=== PATIENT | female | born 1990 | race Caucasian/White ===

== ENCOUNTER 2017-02-08 16:40 | Emergency (ER) | payer OTHER ==
--- NOTE | 2017-02-08 18:32 | ED ORDER SUMMARY ---
..... Patient: YELENA GASTON OrderSheet [facility] VisitID: [id number] [address] [place] [address] 26y, F Registration Date/Time: 02/08/2017 ORDER SHEET Weight: 61.2 kg (stated) Allergies: Latex GENERAL ORDERS: CBC w Diff Urgent (17:02/08/2017 HBivens A.R.N.P.) (17:44 JSimbeck R.N.) (Ack 17:45 LNations ER Tech1) CMP Urgent (17:02/08/2017 HBivens A.R.N.P.) (17:44 JSimbeck R.N.) (Ack 17:45 LNations ER Tech1) UA-Culture if indicated Urgent (17:02/08/2017 HBivens A.R.N.P.) (17:44 JSimbeck R.N.) (Ack 17:45 LNations ER Tech1) Amylase Urgent (17:02/08/2017 HBivens A.R.N.P.) (17:44 JSimbeck R.N.) (Ack 17:45 LNations ER Tech1) Lipase Urgent (17:02/08/2017 HBivens A.R.N.P.) (17:45 JSimbeck R.N.) (Ack 17:45 LNations ER Tech1) Urine Urgent (17:02/08/2017 HBivens A.R.N.P.) (17:45 JSimbeck R.N.) (Ack 17:45 LNations ER Tech1) MEDICATION ORDERS: IV FLUIDS: IV NS : initial bolus 1000 mL (1000 mL/hr), then none - (NOW) (17:02/08/2017 HBivens A.R.N.P.) (17:46 JSimbeck R.N.) Toradol IV 30 mg (NOW) (17:02/08/2017 HBivens A.R.N.P.) (17:46 JSimbeck R.N.) Zofran IV 4 mg (NOW) (17:02/08/2017 HBivens A.R.N.P.) (17:47 JSimbeck R.N.) IV Saline Lock (17:22 02/08/2017 Vinod TerryR.N.PNicki) (17:45 Melanie Kramer) ORDER SHEET NOTES: [Electronically signed by Naya WashburnNNickiPNicki (21:41 02/08/2017)] [Electronically signed by Christian Patel R.N. (07:03 02/09/2017)] [Electronically locked/signed by Christian Patel R.N. (07:03 02/09/2017)]
--- NOTE | 2017-02-08 18:32 | ED NURSING NOTES ---
Clinical Report - Nurses [facility] [address] [place] [place] [address] 02/08/2017 16:43 Patient: YELENA GASTON TRIAGE Triage time 16:57. Acuity: LEVEL 3. Chief Complaint: ABDOMINAL PAIN and NAUSEA and PAINFUL URINATION (Onset this am - generalized abd pain that wraps around to the back. Frequent urges to have a BM, but nothing produced. Last normal BM was yesterday. 2 days ago she had similar but lesser sx that were mostly resolved until today.). SEPSIS SCREEN: Sepsis Screen. Negative (no infection suspected/documented). KING COMA SCORE: King Coma Scale: 15- eyes open spontaneously (4); best verbal response- oriented x 4 (5); best motor response- obeys commands (6). --17:06 Christian Patel R.N. 16:57 02/08/17. BP: 122/72 (regular adult cuff) taken on the left arm, while lying. HR: 98. RR: 20. O2 saturation: 99% on room air. Temp: 98.8 F (oral). Pain level now: 04/03. --17:06 Christian Patel R.N. Weight: 61.2 kg stated. Height/Length: 60 inches Per Patient. BMI: 26.4. --17:01 Christian Patel R.N. Medications None. --16:59 Christian Patel R.N. Allergies Latex. --17:00 Christian Patel R.N. History Arrived by private vehicle. Historian: patient. Accompanied by family. PAST MEDICAL HX: Last normal menstrual period was 3 weeks ago. SOCIAL HX: Former smoker, end date 05/2016 (cigarette). Occasional alcohol use. History of occasional drug use: marijuana. No recent travel. No known contact with a sick individual. ABUSE ASSESSMENT: No report of abuse. --17:06 Christian Patel R.N. PROBLEMS: Ovarian Cyst. --17:00 Christian Patel R.N. PTSD. --17:01 Christian Patel R.N. ADDITIONAL SURGERIES: no known surgeries. Assessment GENERAL / NEURO / PSYCH: Alert. Oriented X 4. Appears in pain. Patient appears calm and cooperative. RESPIRATORY: Respirations not labored. Chest nontender. Breath sounds within normal limits. CVS: Capillary refill less than 2 seconds. GI / : Abdomen soft. Abdominal tenderness diffusely. SKIN: Mucous membranes are pink. Skin is warm and dry. --17:06 Christian Patel R.N. Interventions ID band on patient. To treatment room. --17:06 Christian Patel R.N. PHYSICAL ASSESSMENT Ambulatory to room. GENERAL / NEURO / PSYCH: Alert. Oriented X 4. Appears in pain. HEENT: Mucous membranes are pink. RESPIRATORY: Respirations not labored. Breath sounds within normal limits. CVS: Capillary refill less than 2 seconds. GI / : The patient has had nausea. Abdomen soft. Abdominal tenderness diffusely. Bowel sounds within normal limits. SKIN: Skin is warm and dry. --17:08 Christian Patel R.N. NURSING PROGRESS NOTES Patient gowned. Head of bed elevated. Reassurance given. Two patient identifiers checked. Call light placed in reach. Bed placed in lowest position. Brakes of bed on. Patient ready for evaluation- chart flagged. --17:08 Christian Patel R.N. 17:38 02/08/2017 Site #1 started via IV in the right antecubital space with an 18g angiocath, with aseptic technique and good blood return; one attempt. Blood drawn: rainbow set. Labeled in the presence of the patient and sent to the lab. Saline lock flushed with 10 mL saline. --17:45 Christian Patel R.N. 17:38 02/08/2017 Started bag #1 1000 mL IV Fluids IV NS (Saline); bolus of 1000 mL over 1 hour(s) via site #1 via IV pump. Allergies verified and confirmed 5 rights. IV patency established. IV site checked: no pain, redness, or swelling. IV flushed thoroughly pre- and post-medication administration. --17:46 Christian Patel R.N. 17:39 02/08/2017 Toradol IVP 30 mg given over 1 minute(s) via site #1. Allergies verified and confirmed 5 rights. IV patency established. IV site checked: no pain, redness, or swelling. IV flushed thoroughly pre- and post-medication administration. IVP given by RN. --17:46 Christian Patel R.N. 17:40 02/08/2017 Zofran (Ondansetron HCl) IVP 4 mg given over 1 minute(s) via site #1. Allergies verified and confirmed 5 rights. IV patency established. IV site checked: no pain, redness, or swelling. IV flushed thoroughly pre- and post-medication administration. IVP given by RN. --17:47 Christian Patel R.N. 17:58 02/08/2017 Toradol IVP Response: no adverse reaction pain is improving. Symptoms have improved. --17:58 Christian Patel R.N. 17:58 02/08/2017 Zofran IVP Response: no adverse reaction pain is improving. Symptoms have improved. --17:58 Christian Patel R.N. 18:00 02/08/17. BP: 96/58. HR: 98. RR: 16. O2 saturation: 97% on room air. Pain level now: 02/01. --18:16 Christian Patel R.N. DISPOSITION / DISCHARGE 18:49 02/08/2017 Site #1 removed upon discharge. Bandage applied. --18:52 Christian Patel R.N. Departure time: 1850. Condition at departure: improved and stable. No learning barriers present. Discharge instructions provided and reviewed with the patient. Reviewed medication(s). Patient and spouse verbalized understanding. Written instructions provided in Libyan. The patient was discharged by the nurse practitioner. She was discharged home and accompanied by spouse. She left the Emergency Department ambulatory and via private vehicle. Spouse driving. --18:53 Christian Patel R.N. 18:35 02/08/17. BP: 109/53. HR: 98. RR: 16. O2 saturation: 98%. Temp: 98.8 F. Pain level now: 01/02. --18:53 Christian Patel R.N. Locked/Released at 02/09/2017 7:03 by Christian Patel R.N.
--- NOTE | 2017-02-08 18:32 | ED ORDER SUMMARY ---
..... Patient: YELENA GASTON OrderSheet [facility] VisitID: [id number] [address] [place] [address] 26y, F Registration Date/Time: 02/08/2017 ORDER SHEET Weight: 61.2 kg (stated) Allergies: Latex GENERAL ORDERS: CBC w Diff Urgent (17:02/08/2017 HBivens A.R.N.P.) (17:44 JSimbeck R.N.) (Ack 17:45 LNations ER Tech1) CMP Urgent (17:02/08/2017 HBivens A.R.N.P.) (17:44 JSimbeck R.N.) (Ack 17:45 LNations ER Tech1) UA-Culture if indicated Urgent (17:02/08/2017 HBivens A.R.N.P.) (17:44 JSimbeck R.N.) (Ack 17:45 LNations ER Tech1) Amylase Urgent (17:02/08/2017 HBivens A.R.N.P.) (17:44 JSimbeck R.N.) (Ack 17:45 LNations ER Tech1) Lipase Urgent (17:02/08/2017 HBivens A.R.N.P.) (17:45 JSimbeck R.N.) (Ack 17:45 LNations ER Tech1) Urine Urgent (17:02/08/2017 HBivens A.R.N.P.) (17:45 JSimbeck R.N.) (Ack 17:45 LNations ER Tech1) MEDICATION ORDERS: IV FLUIDS: IV NS : initial bolus 1000 mL (1000 mL/hr), then none - (NOW) (17:02/08/2017 HBivens A.R.N.P.) (17:46 JSimbeck R.N.) Toradol IV 30 mg (NOW) (17:02/08/2017 HBivens A.R.N.P.) (17:46 JSimbeck R.N.) Zofran IV 4 mg (NOW) (17:02/08/2017 HBivens A.R.N.P.) (17:47 JSimbeck R.N.) IV Saline Lock (17:22 02/08/2017 Vinod TerryR.N.PNicki) (17:45 Melanie Kramer) ORDER SHEET NOTES: [Electronically signed by Naya WashburnNNickiPNicki (21:41 02/08/2017)] [Electronically signed by Christian Patel R.N. (07:03 02/09/2017)] [Electronically locked/signed by Christian Patel R.N. (07:03 02/09/2017)]
--- NOTE | 2017-02-08 18:32 | ED CLINICAL REPORT ---
Clinical Report - Physicians/Mid Levels [facility] [address] [place] [address] 02/08/2017 16:43 Patient: YELENA GASTON Time Seen: 17:07; initial patient contact, initial documentation, patient care assumed. Arrived- By private vehicle. Historian- patient. HISTORY OF PRESENT ILLNESS Chief Complaint: ABDOMINAL PAIN. At its maximum, severity described as severe. When seen in the E.D., severity described as severe. Modifying factors. Not worsened by anything. Not relieved by anything. It is described as "pain", sharp and stabbing and pressure. It is described as located in the right lower quadrant, right pelvis, left lower quadrant and left pelvis and in the lower abdomen. It is described as located in the pelvic area and in the suprapubic area and radiating to the low back. This started today. The patient has had nausea. No loss of appetite, vomiting or diarrhea. No additional abdominal pain. No recent travel. Similar symptoms previously: None. Recent medical care: Not recently seen/assessed. REVIEW OF SYSTEMS Last normal menstrual period- about 3 weeks ago. No constipation, black stools, hematemesis, difficulty with urination or bloody stools. No fever, chest pain, difficulty breathing or vaginal discharge. The patient has had pain on urination. The patient has had urinary frequency. Denies current . Last bowel movement: yesterday. All systems otherwise negative, except as recorded above. PAST HISTORY See nurses notes. PROBLEMS: Ovarian Cyst. --17:00 Christian Patel R.N. PTSD. --17:01 Christian Patel R.N. ADDITIONAL SURGERIES: no known surgeries. SOCIAL HISTORY Former smoker. Occasional alcohol use. History of occasional drug use: marijuana. No recent travel. Is a local resident. FAMILY HISTORY Negative. ADDITIONAL NOTES The nursing notes have been reviewed with agreement regarding the chief complaint, HPI, ROS, PMH and patient medications and allergies. PHYSICAL EXAM Vital Signs: 02/08/2017 16:57 BP: 122/72. HR: 98. RR: 20. O2 saturation: 99%. Temp: 98.8 F. Pain level now: 04/03. Have been reviewed as normal and appear to be correct. Appearance: Alert. Oriented X3. No acute distress. Anxious. Eyes: Pupils equal, round and reactive to light. Eyes normal inspection. Neck: Normal inspection. Neck supple. CVS: Normal heart rate and rhythm. Heart sounds normal. Pulses normal. Respiratory: No respiratory distress. Breath sounds normal. Chest nontender. Abdomen: Soft and nontender. Bowel sounds normal. No organomegaly. No mass. Back: Normal inspection. Skin: Skin warm and dry. Normal skin color. No rash. Normal skin turgor. Extremities: Extremities exhibit normal ROM. No lower extremity edema. Neuro: Oriented X 3. No motor deficit. No sensory deficit. LABS, X-RAYS, AND EKG Laboratory Tests: UA-Culture if indicated: (RASTA: 02/08/2017 17:30) ( [facility] [place] 02/08/2017 18:23) Final results Test Result Flag Units (Reference) URINE COLOR YELLOW URINE APPEARANCE CLEAR URINE GLUCOSE NEGATIVE (NEGATIVE) URINE BILIRUBIN NEGATIVE (NEGATIVE) URINE KETONE NEGATIVE (NEGATIVE) URINE SPECIFIC GRAVITY <= 1.005 L (1.010-1.030) URINE PH 6.5 (5.0-8.0) URINE PROTEIN NEGATIVE (NEGATIVE) URINE UROBILINOGEN 0.2 EU/dL (0.2-1.0) URINE NITRITE NEGATIVE (NEGATIVE) URINE BLOOD TRACE-INTACT (NEGATIVE) URINE LEUK ESTERASE NEGATIVE (NEGATIVE) URINE RBC 0-1 rbc/hpf (0-1) URINE WBC 0-1 wbc/hpf (0-1) URINE EPITHELIAL CELLS 1-3 EPI/hpf (0-5) URINE BACTERIA FEW (1+) (NONE SEEN) URINE COMMENT CULT NOT INDICATED URINE CULTURES ARE SET-UP BASED ON THE FOLLOWING CRITERIA:POSITIVE NITRITEPOSITIVE LEUKOCYTE ESTERASEGREATER THAN 10 WHITE BLOOD CELLSMODERATE (2+) OR GREATER BACTERIA Urine: (RASTA: 02/08/2017 17:30) ( [facility] [place] 02/08/2017 18:04) Final results Test Result Flag Units (Reference) URINE NEGATIVE CBC w Diff: (RASTA: 02/08/2017 17:30) ( [facility] [place] 02/08/2017 17:55) Final results Test Result Flag Units (Reference) WHITE BLOOD COUNT 10.8 K/uL (4.5-11.5) RED BLOOD COUNT 5.09 M/uL (4.00-5.20) HEMOGLOBIN 14.7 gm/dL (12.0-16.0) HEMATOCRIT 43.0 % (36.0-46.0) MEAN CELL VOLUME 85 fL (80-100) MEAN CORPUSCULAR HGB 29 pg (26-34) MEAN CORPUSCULAR HGB CONC 34 g/dL (31-37) RED CELL DISTRIBUTION WIDTH 13.1 % (11.6-14.8) PLATELET COUNT 243 K/uL (150-400) NEUTROPHIL % 77.9 H % (50-75) LYMPH % 13.5 L % (25-40) MONO % 4.5 % (3-14) EOSINOPHIL % 3.8 % (0-4) BASOPHIL % 0.3 % (0-2) CMP: (RASTA: 02/08/2017 17:30) ( MsgRcvd 02/08/2017 18:25) Final results Test Result Flag Units (Reference) GLUCOSE 93 mg/dL (70-110) BUN 9 mg/dL (7-18) CREATININE 0.7 mg/dL (0.6-1.3) Estimated GFR >60 mL/min Estimated GFR- >60 mL/min Note: Persistent reduction over 3 months in eGFR<60 mL/min/1.73 m2 defines CKD. Patients with eGFR values>=60 mL/min/1.73 m2 may also have CKD if evidence ofpersistent proteinuria. Additional information may be foundat www.kidney.org. SODIUM 141 mmol/L (136-145) POTASSIUM 3.8 mmol/L (3.5-5.1) CHLORIDE 104 mmol/L (98-107) CARBON DIOXIDE 26 mmol/L (21-32) CALCIUM 9.1 mg/dL (8.5-10.1) TOTAL PROTEIN 8.6 H g/dL (6.4-8.2) ALBUMIN 4.1 g/dL (3.3-5.0) BILIRUBIN, TOTAL 0.3 mg/dL (0.0-1.0) ALKALINE PHOSPHATASE 67 U/L (46-116) AST (SGOT) 15 U/L (15-37) ALT (SGPT) 15 U/L (12-78) LIPASE 85 U/L (73-393) AMYLASE 53 U/L (25-115) . PROGRESS AND PROCEDURES Course of Care: 182. pt smiling and telling me she feels great and is ready to go home. Patient counseled in person regarding the patient's stable condition, test results and diagnosis. 18:27. Differential Diagnosis: I considered acute appendicitis, diverticulitis, colon cancer, ulcerative colitis, Crohn's disease, urinary tract infection, ureterolithiasis, ovarian cyst, ovarian torsion, , ectopic and viral syndrome as a possible cause of abdominal pain in this patient. This is a partial list of diagnoses considered. Above considerations are based on history, physical exam, reassessment and laboratory data. Differential diagnosis was discussed with patient. Disposition: Discharged home in good and improved condition (18:32). Condition: good and stable. CLINICAL IMPRESSION Acute generalized abdominal pain of undetermined cause. INSTRUCTIONS Warnings: GENERAL WARNINGS: Return or contact your physician immediately if your condition worsens or changes unexpectedly, if not improving as expected, or if other problems arise. SPECIFICALLY, return if you develop pain in the abdomen or pelvis, fever, the inability to keep fluids down, blood in vomitus, blood in diarrhea, fainting or lightheadedness. Prescription Medications: Zofran 4 mg: Take 1 orally every six hours as needed for nausea/vomiting. Dispense ten (10). No refills. Substitution is permissible. Ultram 50 mg tablets: take 1-2 orally every 6 hours as needed for pain. Dispense twenty (20). No refills. Substitution is permissible. Follow-up: Follow up with your doctor in about two days even if well. Call for an appointment. Summary of care provided to patient. Understanding of the discharge instructions verbalized by patient. (Electronically signed by Naya Washburn A.R.N.P. 02/08/2017 21:41)
--- NOTE | 2017-02-09 07:04 | ED DISCHARGE INSTRUCTIONS ---
Patient: YELENA GASTON General Instructions [facility] VisitID: [id number] [place] [address] 26y, F Registration Date/Time: 02/08/2017 Acute generalized abdominal pain of undetermined cause. INSTRUCTIONS Warnings: GENERAL WARNINGS: Return or contact your physician immediately if your condition worsens or changes unexpectedly, if not improving as expected, or if other problems arise. SPECIFICALLY, return if you develop pain in the abdomen or pelvis, fever, the inability to keep fluids down, blood in vomitus, blood in diarrhea, fainting or lightheadedness. Prescription Medications: Zofran 4 mg: Take 1 orally every six hours as needed for nausea/vomiting. Dispense ten (10). No refills. Substitution is permissible. Ultram 50 mg tablets: take 1-2 orally every 6 hours as needed for pain. Dispense twenty (20). No refills. Substitution is permissible. Follow-up: Follow up with your doctor in about two days even if well. Call for an appointment. Summary of care provided to patient. Understanding of the discharge instructions verbalized by patient. ADDITIONAL INFORMATION Abdominal Pain, Unknown Cause (Female) The exact cause of your abdominal (stomach) pain is not certain. This does not mean that this is something to worry about, or the right tests were not done. Everyone likes to know the exact cause of the problem, but sometimes with abdominal pain, there is no clear-cut cause, and this could be a good thing. The good news is that your symptoms can be treated, and you will feel better. Your condition does not seem serious now; however, sometimes the signs of a serious problem may take more time to appear. For this reason,it is important for you to watch for any new symptoms, problems,or worsening of your condition. Over the next few days, the abdominal pain may come and go, or be continuous. Other common symptoms can include nausea and vomiting. Sometimes it can be difficult to tell if you feel nauseous, you may just feel bad and not associate that feeling with nausea. Constipation, diarrhea, and a fever may go along with the pain. The pain may continue even if treated correctly over the following days. Depending on how things go, sometimes the cause can become clear and may require further or different treatment. Additional evaluations, medications, or tests may be needed. Home care Your health care provider may prescribe medications for pain, symptoms, or an infection. Follow the health care provider's instructions for taking these medications. General care Rest until your next exam. No strenuous activities. Try to find positions that ease discomfort. A small pillow placed on the abdomen may help relieve pain. Something warm on your abdomen (such as a heating pad) may help, but be careful not to burn yourself. Diet Do not force yourself to eat, especially if having cramps, vomiting, or diarrhea. Water is important so you do not get dehydrated. Soup may also be good. Sports drinks may also help, especially if they are not too acidic. Make sure you don't drink sugary drinks as this can make things worse. Take liquids in small amounts. Do not guzzle them. Caffeine sometimes makes the pain and cramping worse. Avoid dairy products if you have vomiting or diarrhea. Don't eat large amounts at a time. Wait a few minutes between bites. Eat a diet low in fiber (called a low-residue diet). Foods allowed include refined breads, white rice, fruit and vegetable juices without pulp, tender meats. These foods will pass more easily through the intestine. Avoid whole-grain foods, whole fruits and vegetables, meats, seeds and nuts, fried or fatty foods, dairy, alcohol and spicy foods until your symptoms go away. Follow-up care Follow up with your health care provider as instructed, or if your pain does not begin to improve in the next 24 hours. When to seek medical care Seek prompt medical care if any of the following occur: Pain gets worse or moves to the right lower abdomen New or worsening vomiting or diarrhea Swelling of the abdomen Unable to pass stool for more than three days Fever of 100.4F (38C) or higher, or as directed by your healthcare provider. Blood in vomit or bowel movements (dark red or black color) Jaundice (yellow color of eyes and skin) Weakness, dizziness Chest, arm, back, neck or jaw pain Unexpected vaginal bleeding or missed period Call 911 Call emergency services if any of the following occur: Trouble breathing Confusion Fainting or loss of consciousness Rapid heart rate Seizure Abdominal Pain,Possible Appendicitis [Repeat Exam, Female] Based on your visit today, the exact cause of your abdominal (stomach) pain is not certain. However, you do have some of the early signs of APPENDICITIS. Early in an appendix infection the symptoms can be similar to a simple "stomach ache" or "stomach flu". Therefore, the diagnosis can be hard to make. Since an appendix infection is a serious condition, it is important to know if this is the cause of your symptoms. WAITING for more time to pass and repeating the exam is the best way to find out whether you have appendicitis. Within the next 12-24 hours the cause of your stomach pain should become clear. It is important for you to watch for any new symptoms or worsening of your condition. (See below). Home Care: Rest until your next exam. No strenuous activities. Eat a diet low in fiber (called a low-residue diet). Foods allowed include refined breads, white rice, fruit and vegetable juices without pulp, tender meats. These foods will pass more easily through the intestine. Avoid whole-grain foods, whole fruits and vegetables, meats, seeds and nuts, fried or fatty foods, dairy, alcohol and spicy foods until your symptoms go away. In some cases, you may be asked not to eat or drink anything until you are re-examined. Return for another exam exactly as directed. Follow Up with your doctor or this facility as directed. Get Prompt Medical Attention if any of the following occur: Pain gets worse or moves to the right lower abdomen New or worsening vomiting or diarrhea Swelling of the abdomen Unable to pass stool for more than three days Fever of 100.4F (38C) or higher, or as directed by your healthcare provider Blood in vomit or bowel movements (dark red or black color) Weakness, dizziness or fainting Unexpected vaginal bleeding Ondansetron Oral disintegrating tablet What is this medicine? ONDANSETRON (on LILIBETH se panfilo) is used to treat nausea and vomiting caused by chemotherapy. It is also used to prevent or treat nausea and vomiting after surgery. How should I use this medicine? These tablets are made to dissolve in the mouth. Do not try to push the tablet through the foil backing. With dry hands, peel away the foil backing and gently remove the tablet. Place the tablet in the mouth and allow it to dissolve, then swallow. While you may take these tablets with water, it is not necessary to do so. Talk to your neurology technician regarding the use of this medicine in children. Special care may be needed. What side effects may I notice from receiving this medicine? Side effects that you should report to your doctor or health companion caregiver as soon as possible: allergic reactions like skin rash, itching or hives, swelling of the face, lips, or tongue breathing problems dizziness fast or irregular heartbeat feeling faint or lightheaded, falls fever and chills swelling of the hands and feet tightness in the chest Side effects that usually do not require medical attention (report to your doctor or health companion caregiver if they continue or are bothersome): constipation or diarrhea headache What may interact with this medicine? Do not take this medicine with any of the following medications: -apomorphine -cisapride -dofetilide -dronedarone -pimozide -thioridazine -ziprasidone This medicine may also interact with the following medications: -carbamazepine -phenytoin -rifampicin -tramadol -other medicines that prolong the QT interval (cause an abnormal heart rhythm) What if I miss a dose? If you miss a dose, take it as soon as you can. If it is almost time for your next dose, take only that dose. Do not take double or extra doses. Where should I keep my medicine? Keep out of the reach of children. Store between 2 and 30 degrees C (36 and 86 degrees F). Throw away any unused medicine after the expiration date. What should I tell my health care provider before I take this medicine? They need to know if you have any of these conditions: heart disease history of irregular heartbeat liver disease low levels of magnesium or potassium in the blood an unusual or allergic reaction to ondansetron, granisetron, other medicines, foods, dyes, or preservatives or trying to get breast-feeding What should I watch for while using this medicine? Check with your doctor or health companion caregiver as soon as you can if you have any sign of an allergic reaction. Tramadol Hydrochloride Oral tablet What is this medicine? TRAMADOL (TRA ma dole) is a pain reliever. It is used to treat moderate to severe pain in adults. How should I use this medicine? Take this medicine by mouth with a full glass of water. Follow the directions on the prescription label. If the medicine upsets your stomach, take it with food or milk. Do not take more medicine than you are told to take. Talk to your neurology technician regarding the use of this medicine in children. Special care may be needed. What side effects may I notice from receiving this medicine? Side effects that you should report to your doctor or health companion caregiver as soon as possible: allergic reactions like skin rash, itching or hives, swelling of the face, lips, or tongue breathing difficulties, wheezing confusion itching light headedness or fainting spells redness, blistering, peeling or loosening of the skin, including inside the mouth seizures Side effects that usually do not require medical attention (report to your doctor or health companion caregiver if they continue or are bothersome): constipation dizziness drowsiness headache nausea, vomiting What may interact with this medicine? Do not take this medicine with any of the following medications: MAOIs like Carbex, Eldepryl, Marplan, Nardil, and Parnate This medicine may also interact with the following medications: alcohol or medicines that contain alcohol antihistamines benzodiazepines bupropion carbamazepine or oxcarbazepine clozapine cyclobenzaprine digoxin furazolidone linezolid medicines for depression, anxiety, or psychotic disturbances medicines for migraine headache like almotriptan, eletriptan, frovatriptan, naratriptan, rizatriptan, sumatriptan, zolmitriptan medicines for pain like pentazocine, buprenorphine, butorphanol, meperidine, nalbuphine, and propoxyphene medicines for sleep muscle relaxants naltrexone phenobarbital phenothiazines like perphenazine, thioridazine, chlorpromazine, mesoridazine, fluphenazine, prochlorperazine, promazine, and trifluoperazine procarbazine warfarin What if I miss a dose? If you miss a dose, take it as soon as you can. If it is almost time for your next dose, take only that dose. Do not take double or extra doses. Where should I keep my medicine? Keep out of the reach of children. Store at room temperature between 15 and 30 degrees C (59 and 86 degrees F). Keep container tightly closed. Throw away any unused medicine after the expiration date. What should I tell my health care provider before I take this medicine? They need to know if you have any of these conditions: brain tumor depression drug abuse or addiction head injury if you frequently drink alcohol containing drinks kidney disease or trouble passing urine liver disease lung disease, asthma, or breathing problems seizures or epilepsy suicidal thoughts, plans, or attempt; a previous suicide attempt by you or a family member an unusual or allergic reaction to tramadol, codeine, other medicines, foods, dyes, or preservatives or trying to get breast-feeding What should I watch for while using this medicine? Tell your doctor or health companion caregiver if your pain does not go away, if it gets worse, or if you have new or a different type of pain. You may develop tolerance to the medicine. Tolerance means that you will need a higher dose of the medicine for pain relief. Tolerance is normal and is expected if you take this medicine for a long time. Do not suddenly stop taking your medicine because you may develop a severe reaction. Your body becomes used to the medicine. This does NOT mean you are addicted. Addiction is a behavior related to getting and using a drug for a non-medical reason. If you have pain, you have a medical reason to take pain medicine. Your doctor will tell you how much medicine to take. If your doctor wants you to stop the medicine, the dose will be slowly lowered over time to avoid any side effects. You may get drowsy or dizzy. Do not drive, use machinery, or do anything that needs mental alertness until you know how this medicine affects you. Do not stand or sit up quickly, especially if you are an older patient. This reduces the risk of dizzy or fainting spells. Alcohol can increase or decrease the effects of this medicine. Avoid alcoholic drinks. You may have constipation. Try to have a bowel movement at least every 2 to 3 days. If you do not have a bowel movement for 3 days, call your doctor or health companion caregiver. Your mouth may get dry. Chewing sugarless gum or sucking hard candy, and drinking plenty of water may help. Contact your doctor if the problem does not go away or is severe. You have been given the following additional information: Abdominal Pain, Unknown Cause, (Female) Abdominal Pain, Possible Appendicitis (Female) Ondansetron Oral disintegrating tablet Tramadol Hydrochloride Oral tablet (Electronically signed by Naya Washburn A.R.N.P. 02/08/2017 21:41)
--- NOTE | 2017-02-09 07:04 | ED MED RECONCILIATION SUMMARY ---
Patient: YELENA GASTON Medication Reconciliation Report [facility] VisitID: [id number] [address] [place] [address] 26y, F Registration Date/Time: 02/08/2017 Weight: 61.2 kg Height/Length: 60 in. BMI: 26.4 ALLERGIES: Latex The patient's Home Medications are listed below: NONE. The source(s) of the original Home Medication information: Not obtained. The following Medications were given to the patient in the Emergency Department: IV NS IV Fluids bolus 1000 mL over 1 hour(s), administered: 02/08/2017 5:38:00 PM Toradol [IVP] IVP 30 mg, administered: 02/08/2017 5:39:00 PM Zofran [IVP] IVP 4 mg, administered: 02/08/2017 5:40:00 PM The following Medications were prescribed to the patient: Zofran 4 mg: Take 1 orally every six hours as needed for nausea/vomiting. Dispense ten (10). No refills. Substitution is permissible. -- Naya Washburn, Marlene.R.N.P. Ultram 50 mg tablets: take 1-2 orally every 6 hours as needed for pain. Dispense twenty (20). No refills. Substitution is permissible. -- Naya Washburn A.R.N.P.
--- NOTE | 2017-02-09 07:04 | ED MAR SUMMARY ---
..... Medication Administration Record [facility] [address] [place] [address] Patient: YELENA GASTON Visit ID: [id number] 26y, F Weight: 61.2 kg Height/Length: 60 in BMI: 26.4 ALLERGIES: Latex Start 17:38 02/08/2017 Christian Patel R.N. Medication Administered: IV NS (SALINE), Dose: IV Fluids, Bolus: 1000 mL over 1 hour(s), Dispensed: 1000 mL bag, Site: #1 right AC. Medication Ordered: IV NS : initial bolus 1000 mL (1000 mL/hr), then none - (NOW). Given 17:39 02/08/2017 Christian Patel R.N. Medication Administered: TORADOL [IVP], Dose: 30 mg IVP over 1 minute(s), Site: #1 right AC. Medication Ordered: Toradol IV 30 mg (NOW). Given 17:40 02/08/2017 Christian Patel R.N. Medication Administered: ZOFRAN [IVP] (ONDANSETRON HCL), Dose: 4 mg IVP over 1 minute(s), Site: #1 right AC. Medication Ordered: Zofran IV 4 mg (NOW).
--- NOTE | 2017-02-09 07:04 | ED MAR SUMMARY ---
..... Medication Administration Record [facility] [address] [place] [address] Patient: YELENA GASTON Visit ID: [id number] 26y, F Weight: 61.2 kg Height/Length: 60 in BMI: 26.4 ALLERGIES: Latex Start 17:38 02/08/2017 Christian Patel R.N. Medication Administered: IV NS (SALINE), Dose: IV Fluids, Bolus: 1000 mL over 1 hour(s), Dispensed: 1000 mL bag, Site: #1 right AC. Medication Ordered: IV NS : initial bolus 1000 mL (1000 mL/hr), then none - (NOW). Given 17:39 02/08/2017 Christian Patel R.N. Medication Administered: TORADOL [IVP], Dose: 30 mg IVP over 1 minute(s), Site: #1 right AC. Medication Ordered: Toradol IV 30 mg (NOW). Given 17:40 02/08/2017 Christian Patel R.N. Medication Administered: ZOFRAN [IVP] (ONDANSETRON HCL), Dose: 4 mg IVP over 1 minute(s), Site: #1 right AC. Medication Ordered: Zofran IV 4 mg (NOW).
--- NOTE | 2017-02-09 07:04 | ED MED RECONCILIATION SUMMARY ---
Patient: YELENA GASTON Medication Reconciliation Report [facility] VisitID: [id number] [address] [place] [address] 26y, F Registration Date/Time: 02/08/2017 Weight: 61.2 kg Height/Length: 60 in. BMI: 26.4 ALLERGIES: Latex The patient's Home Medications are listed below: NONE. The source(s) of the original Home Medication information: Not obtained. The following Medications were given to the patient in the Emergency Department: IV NS IV Fluids bolus 1000 mL over 1 hour(s), administered: 02/08/2017 5:38:00 PM Toradol [IVP] IVP 30 mg, administered: 02/08/2017 5:39:00 PM Zofran [IVP] IVP 4 mg, administered: 02/08/2017 5:40:00 PM The following Medications were prescribed to the patient: Zofran 4 mg: Take 1 orally every six hours as needed for nausea/vomiting. Dispense ten (10). No refills. Substitution is permissible. -- Naya Washburn, Marlene.R.N.P. Ultram 50 mg tablets: take 1-2 orally every 6 hours as needed for pain. Dispense twenty (20). No refills. Substitution is permissible. -- Naya Washburn A.R.N.P.
== END 2017-02-08 18:50 | disposition home or self-care (01) ==
LOC: ED SRH 16:40
DX: R10.84 Generalized abdominal pain (principal); Z87.891 Personal history of nicotine dependence
CPT/HCPCS: 90004; 90100; 92235; 92530; 93070; 95059